=== PATIENT | female | born 1995 | race Two or more races ===

== ENCOUNTER 2024-12-26 12:07 | Emergency (ER) | payer OTHER ==
[~2024-12-26] VITALS: Ht 162.6 cm; Wt 88.9 kg
== END 2024-12-26 16:15 | disposition home or self-care (01) ==
LOC: ER 12:35
DX: O99.891 Other specified diseases and conditions complicating pregnancy (principal); Z3A.01 Less than 8 weeks gestation of pregnancy; M54.09 Panniculitis affecting regions, neck and back, multiple sites in spine; R51.9 Headache, unspecified; V43.52XA Car driver injured in collision with other type car in traffic accident, initial encounter; Y93.89 Activity, other specified; Y92.413 State road as the place of occurrence of the external cause

== ENCOUNTER 2025-08-06 20:18 | Outpatient (CLI) | payer OTHER ==
[2025-08-06 19:38] VITALS: BP 119/78
[~2025-08-06 20:18] MED LIST: ADULT LOW DOSE81 M1 PO
[2025-08-06] MEDS ORDERED: RINGERS SOLUTION,LACTATED 1,000 ML IV SCH (20:30)
[2025-08-06 21:04] LABS: BASO % 0.3 % (0.1-1.2); EOS # 0.06 (0.04-0.54); EOS % 0.5 % (0.7-7.0); LYMPH # 2.46 (1.18-3.74); LYMPH % 20.9 % (19.3-53.1); MEAN PLATELET VOLUME 10.00 fl (9.4-12.4); MONO # 0.81 (0.24-0.82); MONO % 6.9 % (4.7-12.5); NEUT # 8.37 (1.56-6.13); NEUT % 71.0 % (34.0-71.1); RED CELL DISTRIBUTION WIDTH 16.2 % (11.6-14.4)
[2025-08-06 21:23] LABS: URINE APPEARANCE Clear; URINE BILIRRUBIN Negative (NEGATIVE); URINE BLOOD Negative; URINE COLOR Yellow; URINE GLUCOSE Negative (NEGATIVE); URINE KETONE Negative (NEGATIVE); URINE LEUKOCYTE Negative; URINE NITRATE Negative; URINE PROTEIN Negative (NEGATIVE); URINE UROBILINOGEN 0.2 E.U./dl
[2025-08-06 21:27] LABS: INR < 0.93; URINE BACTERIA 147.4 uL (0.0-1933); URINE EPITHELIAL CELLS 7.7 uL (0.0-38.8); URINE WBC 3.9 uL (0.0-23.2)
[2025-08-06 22:04] LABS: URINE CAST 0.00 uL (0.0-1.40); URINE RBC 0.7 uL (0.0-20.8)
[2025-08-06 23:06] VITALS: BP 125/90
[2025-08-07 03:30] VITALS: BP 125/80
[2025-08-07 07:19] VITALS: BP 130/79
[2025-08-07] MEDS ORDERED: CHLORHEXIDINE GLUCONATE 120 ML BOTTLE TOP ONE (07:52)
[2025-08-07 10:32] VITALS: BP 130/79
== END 2025-08-07 10:39 | disposition home or self-care (01) ==
LOC: OBS/DEL 20:18
PROVIDERS: ATTEND Obstetrics & Gynecology
DX: O47.1 False labor at or after 37 completed weeks of gestation (principal); Z3A.38 38 weeks gestation of pregnancy

== ENCOUNTER 2025-08-08 06:57 | Inpatient (IN) | payer OTHER ==
[~2025-08-08] VITALS: Ht 162.6 cm; Wt 93.9 kg
[2025-08-08] VITALS (8 sets, daily range): BP systolic 108–132; BP diastolic 62–89
[2025-08-08] MEDS ORDERED: RINGERS SOLUTION,LACTATED 1,000 ML IV SCH (07:00)
[2025-08-08] MEDS ORDERED: MORPHINE SULFATE 4 MG/ML VIAL IV ONE ×2 (08:30→10:30)
[2025-08-08] MEDS ORDERED: OXYTOCIN 500 ML IV SCH (08:30)
[2025-08-08] MEDS ORDERED: CHLORHEXIDINE GLUCONATE 120 ML BOTTLE TOP ONE (08:39)
[2025-08-08] MEDS ORDERED: ERYTHROMYCIN BASE OPHT 1GM EACH TUBE OP ONE (08:39)
[2025-08-08] MEDS ORDERED: OXYTOCIN 20 UNITS/1000ML RL PIGGYBAG IV ONE ×2 (08:39→15:28)
[2025-08-08] MEDS ORDERED: LIDOCAINE HCL 1% 10ML VIAL ONE (08:40)
[2025-08-08 10:56] LABS: ALT/SGPT 25.0 U/L (12-78); AST/SGOT 23.0 U/L (15-37); BILIRUBIN TOTAL 0.35 mg/dL (0.3-1.2); BUN CREA RATIO 16.0 (7.0-25.0); CREATININE SERUM 0.63 mg/dL (0.55-1.02); GFR 111.72; GLOBULINA 4.4 G/DL (2.4-3.5); GLUCOSE FASTING 85.0 mg/dL (65-100); OSMOLALITY SERUM 281.0 MOSM/KG (275-295)
[2025-08-08 21:13] LABS: BASO % 0.2 % (0.1-1.2); EOS # 0.01 (0.04-0.54); EOS % 0.1 % (0.7-7.0); LYMPH # 2.39 (1.18-3.74); LYMPH % 14.7 % (19.3-53.1); MEAN PLATELET VOLUME 10.00 fl (9.4-12.4); MONO # 1.20 (0.24-0.82); MONO % 7.4 % (4.7-12.5); NEUT # 12.53 (1.56-6.13); NEUT % 77.1 % (34.0-71.1); RED CELL DISTRIBUTION WIDTH 16.2 % (11.6-14.4)
[2025-08-09] VITALS: BP 105/61
[2025-08-09 08:00] VITALS: BP 112/77
[2025-08-09] MEDS ORDERED: PNV,CALCIUM 72/IRON/FOLIC ACID 1 TAB TABLET PO SCH (09:00)
[2025-08-09 16:22] VITALS: BP 113/76
[2025-08-10] VITALS: BP 123/86
[2025-08-10 08:32] VITALS: BP 124/87
== END 2025-08-10 15:25 | disposition home or self-care (01) | DRG 768 ==
LOC: LDR 06:57 → OB/GYN 13:13
PROVIDERS: Obstetrics & Gynecology; ADMIT Obstetrics & Gynecology; ATTEND Obstetrics & Gynecology
PROC: 10E0XZZ Delivery of Products of Conception, External Approach (ICD-10-PCS; principal; 2025-08-08)
PROC: 0DQR0ZZ Repair Anal Sphincter, Open Approach (ICD-10-PCS; 2025-08-08)
PROC: 4A1HXCZ Monitoring of Products of Conception, Cardiac Rate, External Approach (ICD-10-PCS; 2025-08-08)
DX: O70.21 Third degree perineal laceration during delivery, IIIa (principal); Z37.0 Single live birth; Z3A.38 38 weeks gestation of pregnancy